=== PATIENT | female | born 1950 | race Caucasian/White ===

== ENCOUNTER 2024-01-09 11:03 | Inpatient (IN) | payer MEDICARE, BC, SELFPAY ==
[2024-01-08] VITALS (10 sets, daily range): BP systolic 116–170; BP diastolic 62–90; BMI 27.7; BMI 35.0
[2024-01-08 14:05] LABS: Glucose - Point of Care 144 mg/dl (70-99)
[2024-01-08 14:36] LABS: % Basophils 0.5 % (0-2); % Eosinophils 0.4 % (0-6); % Immature Granulocytes 0.4 % (0-0.5); % Lymphocytes 26.9 % (20.5-51.1); % Monocytes 8.7 % (1.7-9.3); % Neutrophils 63.1 % (42.2-75.2); Absolute Basophils 0.1 10^3/uL (0-0.2); Absolute Eosinophils 0.1 10^3/uL (0-0.7); Absolute Immature Granulocytes 0.1 10^3/uL (0-0.05); Absolute Neutrophils 7.1 10^3/uL (1.4-6.5); Hematocrit 40.7 % (37.0-47.0); Hemoglobin 14.1 g/dL (12.0-16.0); Mean Corp Hgb Conc. 34.6 g/dL (33.0-37.0); Mean Corpuscular Hgb 31.3 pg (27.0-31.0); Mean Corpuscular Volume 90.4 fL (81.0-99.0); Mean Platelet Volume 9.6 fL (7.4-10.4); Nucleated Red Blood Cells % 0 %; Platelet Count 296 10^3/uL (130-400); Red Cell Dist. Width 13.4 % (11.5-14.5); White Blood Cell Count 11.2 10^3/uL (4.8-10.8)
[2024-01-08 14:57] LABS: Lactic Acid 2.3 mmol/L (0.7-2.0)
[2024-01-08 15:02] LABS: ALT (SGPT) 17 U/L (0-35); AST (SGOT) 24 U/L (14-36); Albumin 4.4 g/dl (3.5-5.0); Alkaline Phosphatase 122 U/L (38-126); Blood Urea Nitrogen 25 mg/dl (7-17); Carbon Dioxide 23 mmol/L (22-30); Chloride 105 mmol/L (98-107); Estimated Creatinine Clearance 51 ml/min; Glucose 139 mg/dl (70-99); Lipase 129 U/L (23-300); Potassium 4.4 mmol/L (3.5-5.1); Sodium 137 mmol/L (135-145); Total Bilirubin 0.6 mg/dl (0.2-1.3); eGFR 59.86
[2024-01-08] MEDS: MORPHINE SULFATE 4 MG IV (15:05)
[2024-01-08] MEDS: ZOFRAN 4 MG IV ×2 (15:05→17:09)
[2024-01-08] MEDS: NSS 500 IV (15:07)
[2024-01-08 15:08] LABS: Troponin I < 0.012 ng/ml
[2024-01-08] MEDS: DILAUDID 1 MG IV (17:09)
[2024-01-08 17:13] LABS: Urine Albumin Negative (Neg - Trace); Urine Bilirubin Negative (Negative); Urine Character Slightly Cloudy (Clear); Urine Color Yellow; Urine Glucose Negative (Negative); Urine Ketone Negative (Negative); Urine Leukocyte Negative (Negative); Urine Nitrite Negative (Negative); Urine Occult Blood Negative (Negative); Urine Urobilinogen Negative (Neg - 1+)
--- NOTE | 2024-01-08 17:42 | ED.GENMED ---
History of Present Illness
General
Chief Complaint: Abdominal Pain
Source: patient
Exam Limitations: none
Time Seen by Provider: 01/08/24 14:55
Nursing documentation reviewed up to this point in time: agreed with
History of Present Illness
History of Present Illness:
73-year-old female with past medical history of asthma, previous partial colon resection due to diverticulitis presenting to the emergency department today with concerns of diffuse abdominal pain worsening since yesterday with associated nausea and
vomiting. Denies any chest pain shortness of breath fevers.
Past History
Past History
ED Past Medical History: Other (kidney stones, urticaria, hyperlipidemia, hypertension)
Social History
Tobacco: Smoker
Alcohol: Occasional
Drug: None
Living: with roommate
Review of Systems
Review of Systems
Allergies reviewed?: Yes
All Other Systems: ROS reviewed and negative except as documented in HPI and ROS
Phy Exam
Physical Exam
Physical Exam:
GENERAL: Alert , in no apparent distress
EYE: pupils equal and reactive
NECK: Supple, no significant adenopathy.
ENT: o/p clr, mmm.
CARDIAC: Regular rate and rhythm .
LUNGS: Clear breath sounds bilaterally, no acute respiratory distress, no wheezes/rales/rhonchi
ABDOMEN: Diffuse abdominal pain to palpation.
NEUROLOGICAL: Alert and oriented, no focal neuro deficits
SKIN: Warm and dry, skin intact.
MUSCULOSKELETAL: No edema, well perfused.
PSYCH: Normal and appropriate interaction.
Course
Orders/Labs/Results
Orders:
Orders
01/08/24 14:04
ECG [Electrocardiogram (*1)] Urgent
Reason for Study: Abdominal Pain
01/08/24 14:05
EKG- Treatment ONCE
01/08/24 14:27
Complete Blood Count/With Diff Urgent
Comprehensive Metabolic Panel Urgent
Lactic Acid Urgent
Lipase Urgent
Troponin I Urgent
01/08/24 14:59
CT Abd/Pel (IV only)-DH only Urgent
Comment:
Reason For Exam: diffuse abd pain
01/08/24 15:00
Morphine Sulfate 4 mg IV NOW STA
Ondansetron Injectable [Zofran] 4 mg IV NOW STA
Chest [CR Chest - 2 Views ] Urgent
Comment:
Reason For Exam: cp sob
01/08/24 15:03
0.9% Sodium Chloride 500 ml [Nss] 500 ml IV BOLUS
01/08/24 16:34
Urinalysis Reflex To Culture Urgent
Date Specimen was Collected: 01/08/24
Time Specimen was Collected: 16:31
01/08/24 17:06
HYDROmorphone [Dilaudid] 1 mg IV NOW STA
Ondansetron Injectable [Zofran] 4 mg IV NOW STA
Abnormal Lab Results
01/08/24 01/08/24
14:04 14:27
WBC 11.2 H 10^3/uL
(4.8-10.8)
MCH 31.3 H pg
(27.0-31.0)
Abs Immat Gran (auto) 0.1 H 10^3/uL
(0-0.05)
Absolute Neuts (auto) 7.1 H 10^3/uL
(1.4-6.5)
Absolute Monos (auto) 1.0 H 10^3/uL
(0.1-0.6)
BUN 25 H mg/dl
(7-17)
Glucose 139 H mg/dl
(70-99)
Lactic Acid 2.3 H mmol/L
(0.7-2.0)
POC Glucose 144 H mg/dl
(70-99)
01/08/24 14:27
01/08/24 14:27
Vital Signs
Initial and Last Documented VS:
Initial Vital Signs
Temp Pulse Resp BP Pulse Ox
97.9 F 68 18 164/90 95
01/08/24 14:01 01/08/24 14:01 01/08/24 14:01 01/08/24 14:01 01/08/24 14:01
Last Documented Vital Signs
Temp Pulse Resp BP Pulse Ox
97.5 F 77 17 170/77 94
01/08/24 17:36 01/08/24 17:30 01/08/24 15:45 01/08/24 17:00 01/08/24 17:37
MDM/Problems Addressed
MDM/Problems Addressed:
73-year-old female presenting to the emergency department today with concerns of diffuse abdominal pain worsening since yesterday nausea and vomiting here. Initial blood pressure elevated but otherwise vital signs are normal. White count 11.2
otherwise labs showing slight lactic acidosis as well as elevated BUN to creatinine ratio. Urinalysis normal. CT scan showing small bowel obstruction plan for admission for further treatment and monitoring.
*Critical Care Note
Total Time (30-74mins, 75-104mins- exclusive of procedures): Not Applicable
ED Attending Note
-
Portions of this chart may have been created with voice recognition software.� Occasional wrong word or��sound alike� substitutions may have occurred due to the inherent limitations of voice recognition software.
Discharge Plan
Departure
Patient Disposition: Admit
Date of Disposition: 01/08/24
Time of Disposition: 17:43
Admit to: Med/Surg
Admit to doctor: Adilene
Presentation/result/management discussed w/ accepting MD/DO: Hospitalist
Patient with high blood pressure during this ER visit?: No
Condition: Good
Covid-19: Not Applicable
Discharge Problem:
SBO (small bowel obstruction)
Prescriptions:
No Action
atorvastatin 20 MG tablet
10 mg PO QPM
aspirin 81 MG tablet,delayed release (DR/EC)
81 mg PO DAILYPRN PRN (Reason: pain )
hydroxyzine HCl 25 MG tablet
25 mg PO DAILYPRN PRN (Reason: hives)
hydrochlorothiazide 25 MG tablet
25 mg PO DAILYPRN PRN (Reason: swelling/edema )
meloxicam 15 mg tablet
15 mg PO DAILY
albuterol sulfate 90 mcg/actuation HFA aerosol inhaler
2 inh INHALATION Q6HPRN PRN (Reason: SOB/wheezing )
metoprolol succinate 12.5 MG tablet extended release 24 hr
12.5 mg PO QPM
Pepcid Complete 10-800-165 mg Tablet,Chewable
2 tab PO DAILYPRN PRN (Reason: GI symptoms )
Referrals:
Jenny Yuan MD [Family Provider] -
Interventions
Interventions:
*Risk Screen - Suicide Last Done: 01/08/24 14:36
*General Assessment Last Done: 01/08/24 14:36
*Neglect/Abuse Screening Last Done: 01/08/24 14:36
ED- Fall Risk Assessment Last Done: 01/08/24 14:36
*ED COVID-19 Vaccine History Last Done: 01/08/24 14:36
WE-Tazvbh-Iowltmdrmz Assessment Last Done: 01/08/24 16:10
Discharge Date and Time
Print Language: SRI LANKAN
--- NOTE | 2024-01-08 18:51 | HPS.HSE ---
Family Physician
-
Family Physician: Jenny Yuan
Chief Complaint
-
abdominal pain
History of Present Illness
73-year-old female past medical history of asthma, diverticulitis status post partial colon resection 3 years ago, kidney stones, hyperlipidemia, hypertension, restless leg syndrome, obesity, GERD, presenting with diffuse abdominal pain since
yesterday with nausea and vomiting. Pain is located in the epigastric region and radiates upward as well as in the center of the abdomen radiating across. Pain also radiates to the chest. She denies shortness of breath. Patient denies fevers or
chills. She had a bowel movement yesterday and this morning.
Patient drinks alcohol occasionally. She does smoke currently.
Medical History
Past Medical History
Past Medical History: Reports Other (asthma, diverticulitis status post partial colon resection 3 years ago, kidney stones, hyperlipidemia, hypertension, restless leg syndrome, obesity, GERD)
Past Surgical History: Reports Other (diverticulitis status post partial colon resection 3 years ago)
Social History
Tobacco: Smoker
Alcohol: Occasional
Drug: None
Family History
Family History: Not pertinent
Allergies / Home Medications
Allergies reflects when Allergies were last updated in [facility].
Home Medications with original date entered in [facility]
Allergy/Medication List:
Allergies
Allergy/AdvReac Type Severity Reaction Status Date / Time
erythromycin base Allergy Nausea / Verified 01/08/24 14:03
Vomiting
seasonal Allergy congestion, Uncoded 01/08/24 14:03
itching
eyes
Home Medications
atorvastatin 20 mg tablet 10 mg PO QPM High cholesterol 01/24/19
aspirin 81 mg tablet,delayed release 81 mg PO DAILYPRN PRN pain 09/13/19
hydrochlorothiazide 25 mg tablet 25 mg PO DAILYPRN PRN swelling/edema 01/08/20
hydroxyzine HCl 25 mg tablet 25 mg PO DAILYPRN PRN hives 01/08/20
albuterol sulfate 90 mcg/actuation aerosol inhaler 2 inh inhalation Q6HPRN PRN SOB/wheezing 01/08/24
famotidine-Ca carb-mag hydrox 10 mg-800 mg-165 mg chewable tablet (Pepcid Complete) 2 tab PO DAILYPRN PRN GI symptoms 01/08/24
meloxicam 15 mg tablet 15 mg PO DAILY pain 01/08/24
metoprolol succinate 25 mg tablet,extended release 24 hr 12.5 mg PO QPM Blood Pressure 01/08/24
Review of Systems
-
History Source: Patient
A 12 point ROS was completed and negative except as noted: Yes
Constitutional: Reports No Symptoms
EENT: Reports No Symptoms
Respiratory: Reports No Symptoms
Cardiac: Reports No Symptoms
Abdomen/GI: Reports See HPI
: Reports No Symptoms
Musculoskeletal: Reports No Symptoms
Skin: Reports No Symptoms
Neurological: Reports No Symptoms
Endocrine: Reports No Symptoms
Hematologic/Lymphatic: Reports No Symptoms
Psych: Reports No Symptoms
Physical Exam
Vital Signs
Vital Signs
Temp Pulse Resp BP Pulse Ox
97.5 F 72 17 137/62 95
01/08/24 17:36 01/08/24 18:00 01/08/24 15:45 01/08/24 18:00 01/08/24 18:00
Physical Exam
General: Well Developed, Well Nourished and No Apparent Distress
HEENT: NormoCephalic, Moist mucous membranes and Atraumatic
Respiratory: Clear
Cardiac: S1/S2 and Regular Rhythm; No Murmur or Rub
GI: Soft, Non Distended, Normal Bowel Sounds and Tender (epigastric ); No Organomegaly
Rectal: Deferred by Provider
Musculoskeletal: No Clubbing, No Cyanosis and No Edema
Skin: No Rash
Neuro: Nonfocal/grossly intact
Laboratory Results
-
07/08/24 14:27
01/08/24 14:27
Laboratory Results
Lactic Acid 2.3 mmol/L (0.7-2.0) H 01/08/24 14:27
Total Bilirubin 0.6 mg/dl (0.2-1.3) 01/08/24 14:
AST 24 U/L (14-36) 01/08/24 14:
ALT 17 U/L (0-35) 01/08/24 14:
Alkaline Phosphatase 122 U/L (38-126) 01/08/24 14:
Troponin I < 0.012 ng/ml 01/08/24 14:
Lipase 129 U/L (23-300) 01/08/24 14:
Data Reviewed
-
Lab Data: Labs Reviewed by me
Old Records: Reviewed
Impression/Plan
-
IMPRESSION:
PLAN:
# Developing mild small bowel obstruction
-N.p.o. including oral medications for now
-IV fluids
-Dilaudid, Zofran
-General surgery consulted
Diverticulitis status post partial colon resection 3 years ago
Asthma
-Continue inhalers
Active smoker
Kidney stones
Hyperlipidemia
-Continue statin when able
Essential hypertension
-Continue metoprolol when able
-Hold hydrochlorothiazide
Restless leg syndrome
Obesity
GERD
Full code
DVT prophylaxis heparin
N.p.o.
--- NOTE | 2024-01-08 19:17 | EDRN ---
patients daughter-Danilo Harman [phone] wants to be called with any updates- she lives local and can be here if needed at any time
--- NOTE | 2024-01-08 19:45 | PTCARENOTE ---
Pt arrived from ED via stretcher, oob to bed x1 assist. c/o dizziness. PT states 'my pain is so much better.' oriented to room. call mckenzie within reach.
[2024-01-08 21:31] LABS: Lactic Acid 1.5 mmol/L (0.7-2.0)
[2024-01-08] MEDS: HEPARIN SC (21:44)
[2024-01-08] MEDS: NSS 1000 IV (21:47)
[2024-01-09 00:23] VITALS: BP 124/63
[2024-01-09] MEDS: NSS 1000 IV ×2 (06:24→16:29)
[2024-01-09 06:58] VITALS: BP 130/51
[2024-01-09 07:23] LABS: % Basophils 0.3 % (0-2); % Eosinophils 0.7 % (0-6); % Immature Granulocytes 0.5 % (0-0.5); % Lymphocytes 18.2 % (20.5-51.1); % Monocytes 10.9 % (1.7-9.3); % Neutrophils 69.4 % (42.2-75.2); Absolute Eosinophils 0.1 10^3/uL (0-0.7); Absolute Immature Granulocytes 0.1 10^3/uL (0-0.05); Absolute Lymphocytes 2.4 10^3/uL (1.2-3.4); Absolute Monocytes 1.4 10^3/uL (0.1-0.6); Absolute Neutrophils 9.2 10^3/uL (1.4-6.5); Hematocrit 39.2 % (37.0-47.0); Hemoglobin 13.3 g/dL (12.0-16.0); Mean Corp Hgb Conc. 33.9 g/dL (33.0-37.0); Mean Corpuscular Hgb 31.6 pg (27.0-31.0); Mean Corpuscular Volume 93.1 fL (81.0-99.0); Nucleated Red Blood Cells % 0 %; Red Blood Cell Count 4.21 10^6/uL (4.20-5.40); Red Cell Dist. Width 13.6 % (11.5-14.5); White Blood Cell Count 13.3 10^3/uL (4.8-10.8)
[2024-01-09 08:09] LABS: ALT (SGPT) 15 U/L (0-35); AST (SGOT) 21 U/L (14-36); Albumin 3.6 g/dl (3.5-5.0); Alkaline Phosphatase 92 U/L (38-126); Blood Urea Nitrogen 24 mg/dl (7-17); Calcium 9.1 mg/dl (8.4-10.2); Carbon Dioxide 26 mmol/L (22-30); Chloride 106 mmol/L (98-107); Estimated Creatinine Clearance 60 ml/min; Glucose 92 mg/dl (70-99); Potassium 5.3 mmol/L (3.5-5.1); Total Bilirubin 0.6 mg/dl (0.2-1.3); eGFR > 60.00
[2024-01-09 08:32] LABS: Sodium 137 mmol/L (135-145)
[2024-01-09] MEDS: HEPARIN 5000 UNITS SC ×2 (10:55→21:22)
--- NOTE | 2024-01-09 12:24 | W.PN.HOSP.TC ---
Today's Communication/Plan
-
Monitor vital signs and see plan
N.p.o.
Fluids
Abdominal x-ray
Surgery to see
Monitor leukocytosis
Assessment / Plan
Assessment / Plan
General: Well Developed, Well Nourished and No Apparent Distress
HEENT: NormoCephalic, Moist mucous membranes and Atraumatic
Respiratory: Clear
Cardiac: S1/S2 and Regular Rhythm; No Murmur or Rub
GI: Soft, Non Distended, Normal Bowel Sounds and Tender (epigastric )
Musculoskeletal: No Edema
Skin: No Rash
Neuro: Nonfocal/grossly intact
small bowel obstruction
-N.p.o. including oral medications for now
-IV fluids
-Dilaudid, Zofran
-General surgery consulted, abdominal x-ray
Monitor leukocytosis
CT noted, also shows moderate fecal material throughout the colon
Mild hyperkalemia
monitor
Diverticulitis status post partial colon resection 3 years ago
Asthma
-Continue inhalers
Active smoker
Kidney stones
Hyperlipidemia
-Continue statin when able
Essential hypertension
-Continue metoprolol when able
-Hold hydrochlorothiazide
Restless leg syndrome
Obesity
GERD
Full code
DVT prophylaxis heparin
Anticipated Discharge: 24 - 48 hours
Subjective/Interval History
-
Date of Service: January 09, 2024
Does have some discomfort
Objective Data
-
Labs:
Laboratory Results
01/09/24
06:54
WBC 13.3 H
Hgb 13.3
Hct 39.2
Plt Count
Sodium 137
Potassium 5.3 H
Chloride 106
Carbon Dioxide 26
BUN 24 H
Creatinine 0.9
Glucose 92
Calcium 9.1
Total Bilirubin 0.6
AST 21
ALT 15
Alkaline Phosphatase 92
Vital Signs:
Vital Signs
Temp Pulse Resp BP Pulse Ox
98.8 F 66 26 130/51 93
01/09/24 06:58 01/09/24 06:58 01/09/24 06:58 01/09/24 06:58 01/09/24 06:58
I&O
01/08/24 01/09/24 01/10/24
06:59 06:59 06:59
Intake Total 1000 / 1000
Balance 1000 / 1000
--- NOTE | 2024-01-09 14:36 | CON.GS ---
Medical History
-
Chief Complaint: Abdominal pain nausea and emesis
History of Present Illness:
Patient is a 73 yo F with a PMH of asthma, GERD, HTN, HLD, nephrolithiasis, and s/p robotic sigmoidectomy for diverticulitis by Dr. Andersen in 2019. Ms. Alicia states that she developed diffuse upper abdominal pain, nausea, vomiting yesterday.
Bleeding radiates up into her chest. No fevers or chills. Currently she states that her symptoms have improved. She denies any flatus. Her last bowel movement was yesterday. She denies any prior similar episodes necessitating hospitalization.
She does report infrequent episodes of abdominal discomfort (few times a year).
Past Medical History
Past Medical History: Asthma, GERD, HTN and Hypercholesterolemia
Past Surgical History: Urological (Cystoscopy with stents) and Other (Robotic sigmoidectomy by Dr. Andersen in 2021)
Social History
Tobacco: Smoker
Alcohol: Occasional
Drug: None
Family History
Family History: Reviewed & Not Pertinent
Allergies / Home Medications
Allergy/AdvReac Type Severity Reaction Status Date / Time
erythromycin base Allergy Nausea / Verified 01/08/24 14:03
Vomiting
seasonal Allergy congestion, Uncoded 01/08/24 14:03
itching
eyes
�Medication �Instructions �Recorded �Confirmed �Type
atorvastatin 20 mg tablet 10 mg PO QPM High cholesterol 01/24/19 01/08/24 History
aspirin 81 mg tablet,delayed 81 mg PO DAILYPRN PRN pain 09/13/19 01/08/24 History
release
hydrochlorothiazide 25 mg tablet 25 mg PO DAILYPRN PRN 01/08/20 01/08/24 History
swelling/edema
hydroxyzine HCl 25 mg tablet 25 mg PO DAILYPRN PRN hives 01/08/20 01/08/24 History
albuterol sulfate 90 mcg/actuation 2 inh inhalation Q6HPRN PRN 01/08/24 01/08/24 History
aerosol inhaler SOB/wheezing
famotidine-Ca carb-mag hydrox 10 2 tab PO DAILYPRN PRN GI symptoms 01/08/24 01/08/24 History
mg-800 mg-165 mg chewable tablet
(Pepcid Complete)
meloxicam 15 mg tablet 15 mg PO DAILY pain 01/08/24 01/08/24 History
metoprolol succinate 25 mg 12.5 mg PO QPM Blood Pressure 01/08/24 01/08/24 History
tablet,extended release 24 hr
Review of Systems
-
A 10 point review of systems was completed, and was negative except as per HPI.
Physical Exam
Vital Signs
Temp Pulse Resp BP Pulse Ox
98.8 F 66 26 130/51 93
01/09/24 06:58 01/09/24 06:58 01/09/24 06:58 01/09/24 06:58 01/09/24 06:58
01/08/24 01/09/24 01/10/24
06:59 06:59 06:59
Actual Weight 89.584 kg
Body Mass Index (BMI) 35.0
Lab Results
01/09/24 06:54
01/09/24 06:54
WBC 13.3 10^3/uL (4.8-10.8) H 01/09/24 06:54
Hgb 13.3 g/dL (12.0-16.0) 01/09/24 06:54
Hct 39.2 % (37.0-47.0) 01/09/24 06:54
Plt Count 10^3/uL (130-400) 01/09/24 06:54
Abs Immat Gran (auto) 0.1 10^3/uL (0-0.05) H 01/09/24 06:54
Neutrophils % 69.4 % (42.2-75.2) 01/09/24 06:54
Physical Exam
General: Well Developed and Well Nourished
HEENT: Normocephalic and Anicteric
Respiratory: Non Labored Respirations
Cardiac: Regular Rhythm
GI: Soft, Tender (Minimal upper abdominal), Distended (Mild), Obese and Other (Nonperitoneal (no rebound or guarding))
Musculoskeletal: No Edema
Skin: Warm and Dry
Neuro: Nonfocal/Grossly Intact
Data Reviewed
-
CT Scan: Image Personally Visualized and interpreted and Report Reviewed by me
Labs: Labs Reviewed by me
Old Records: Reviewed
Assessment / Plan
-
Patient is a 73 yo F p/w p SBO
CT scan imaging was reviewed. No evidence of pneumatosis or free air. No concerns for bowel ischemia. Evidence of clinical improvement with some passage of flatus and a BM yesterday, as well as less pain. No plans for surgical intervention at
this time. Repeat abdominal x-ray ordered to follow-up progression of contrast and evaluate degree of small bowel distention. Likely advancement to clear liquids either today versus tomorrow pending x-rays and clinical course.
-- Abd X-ray
-- NPO, IVF
-- OOB/ambulate
-- Correct electrolytes, minimize narcotics
[2024-01-09 15:13] VITALS: BP 119/58
--- NOTE | 2024-01-09 15:38 | CM ---
Patient seen at bedside with daughter. Patient stated that she lives alone with family close by. Patient PCP is Dr. Rodriguez and she uses the [facility] on [facility]. Patient stated that she anticipates discharge home with no needs. CM will continue to
follow for discharge planning needs.
Plan; home with VN vs home with no needs.
--- NOTE | 2024-01-09 18:20 | PTCARENOTE ---
Patient c/o headache. Patient also asking for medication for hives. Patient states, 'I am getting hives. This is not new for me, I just need my medicine.' No hives noted at present. Physician made aware.
--- NOTE | 2024-01-09 18:50 | PTCARENOTE ---
Patient has visible raised hives on the tops of her thighs and one her right upper arm. Physician notified, order obtained for Benadryl 10mg IV now.
[2024-01-09] MEDS: BENADRYL 10 MG IV (19:15)
[2024-01-09] MEDS: MORPHINE SULFATE 1 MG IV (20:36)
[2024-01-09 23:59] VITALS: BP 134/53
[2024-01-10] MEDS: NSS 1000 IV (02:14)
[2024-01-10 07:30] VITALS: BP 131/73
[2024-01-10 08:00] LABS: % Basophils 0.2 % (0-2); % Eosinophils 0.8 % (0-6); % Immature Granulocytes 0.3 % (0-0.5); % Lymphocytes 20.3 % (20.5-51.1); % Monocytes 8.5 % (1.7-9.3); % Neutrophils 69.9 % (42.2-75.2); Absolute Eosinophils 0.1 10^3/uL (0-0.7); Absolute Lymphocytes 2.1 10^3/uL (1.2-3.4); Absolute Monocytes 0.9 10^3/uL (0.1-0.6); Absolute Neutrophils 7.2 10^3/uL (1.4-6.5); Hematocrit 38.7 % (37.0-47.0); Hemoglobin 13.1 g/dL (12.0-16.0); Mean Corp Hgb Conc. 33.9 g/dL (33.0-37.0); Mean Corpuscular Hgb 30.5 pg (27.0-31.0); Mean Corpuscular Volume 90.2 fL (81.0-99.0); Mean Platelet Volume 9.8 fL (7.4-10.4); Nucleated Red Blood Cells % 0 %; Platelet Count 247 10^3/uL (130-400); Red Blood Cell Count 4.29 10^6/uL (4.20-5.40); Red Cell Dist. Width 13.3 % (11.5-14.5); White Blood Cell Count 10.3 10^3/uL (4.8-10.8)
[2024-01-10] MEDS: HEPARIN 5000 UNITS SC ×2 (09:03→20:28)
[2024-01-10 09:26] LABS: ALT (SGPT) 16 U/L (0-35); AST (SGOT) 24 U/L (14-36); Albumin 3.5 g/dl (3.5-5.0); Alkaline Phosphatase 87 U/L (38-126); Blood Urea Nitrogen 15 mg/dl (7-17); Calcium 8.9 mg/dl (8.4-10.2); Carbon Dioxide 18 mmol/L (22-30); Chloride 108 mmol/L (98-107); Estimated Creatinine Clearance 68 ml/min; Glucose 86 mg/dl (70-99); Potassium 4.1 mmol/L (3.5-5.1); Sodium 136 mmol/L (135-145); Total Bilirubin 0.9 mg/dl (0.2-1.3); Total Protein 5.9 g/dl (6.3-8.2); eGFR > 60.00
[2024-01-10] MEDS: ATARAX 25 MG PO (09:55)
--- NOTE | 2024-01-10 11:23 | W.PN.GS2 ---
Today's Communication / Plan
-
Adv to [facility]
Assessment / Plan
-
73F with resolving pSBO
Improving
Adv to [facility]
DVT ppx
Ambulate
All other care as per primary team
Subjective Data
-
Date of Service: January 10, 2024
AFVSS, nausea and abd pain have resolved, she is passing flatus
Objective Data
-
Intake and Output
01/09/24 01/10/24 01/11/24
06:59 06:59 06:59
Intake Total 1000 / 1000 1200 / 1200
Balance 1000 / 1000 1200 / 1200
Intake:
IV fluids (Total) 1000 / 1000 1200 / 1200
Other:
Number of approximated MODERATE 3 4
amounts of urine
Vital Signs
Temp Pulse Resp BP Pulse Ox
98.1 F 65 18 131/73 97
01/10/24 07:30 01/10/24 07:30 01/10/24 07:30 01/10/24 07:30 01/10/24 10:54
Lab Results
01/10/24 07:41
01/10/24 07:41
Calcium 8.9 mg/dl (8.4-10.2) 01/10/24 07:41
Total Bilirubin 0.9 mg/dl (0.2-1.3) 01/10/24 07:41
AST 24 U/L (14-36) 01/10/24 07:41
ALT 16 U/L (0-35) 01/10/24 07:41
Alkaline Phosphatase 87 U/L (38-126) 01/10/24 07:41
Total Protein 5.9 g/dl (6.3-8.2) L 01/10/24 07:41
Albumin 3.5 g/dl (3.5-5.0) 01/10/24 07:41
Physical Exam
-
Gen: NAD
Abd: soft, nt, nd, obese
--- NOTE | 2024-01-10 13:51 | W.PN.HOSP.TC ---
Today's Communication/Plan
-
monitor vitals
see plan
Now on clears
surgery following
Assessment / Plan
Assessment / Plan
General: Well Developed, Well Nourished and No Apparent Distress
HEENT: NormoCephalic, Moist mucous membranes and Atraumatic
Respiratory: Clear
Cardiac: S1/S2 and Regular Rhythm; No Murmur or Rub
GI: Soft, Non Distended, Normal Bowel Sounds and Tender (epigastric )
Musculoskeletal: No Edema
Skin: No Rash
Neuro: Nonfocal/grossly intact
small bowel obstruction
Slowly improving now, now on clears
DC further fluids
-Dilaudid, Zofran
-General surgery following
Monitor leukocytosis
CT noted, also shows moderate fecal material throughout the colon
Mild hyperkalemia
monitor, improving
Diverticulitis status post partial colon resection 3 years ago
Asthma
-Continue inhalers
Active smoker
Kidney stones
Hyperlipidemia
-Continue statin when able
Essential hypertension
-Continue metoprolol when able
-Hold hydrochlorothiazide
Restless leg syndrome
Obesity
GERD
Full code
DVT prophylaxis heparin
Anticipated Discharge: > 48 hours
Subjective/Interval History
-
Date of Service: January 10, 2024
Still have some discomfort
Objective Data
-
Labs:
Laboratory Results
01/10/24
07:41
WBC 10.3
Hgb 13.1
Hct 38.7
Plt Count 247
Sodium 136
Potassium 4.1
Chloride 108 H
Carbon Dioxide 18 L
BUN 15
Creatinine 0.8
Glucose 86
Calcium 8.9
Total Bilirubin 0.9
AST 24
ALT 16
Alkaline Phosphatase 87
Vital Signs:
Vital Signs
Temp Pulse Resp BP Pulse Ox
98.1 F 65 18 131/73 97
01/10/24 07:30 01/10/24 07:30 01/10/24 07:30 01/10/24 07:30 01/10/24 10:54
I&O
01/09/24 01/10/24 01/11/24
06:59 06:59 06:59
Intake Total 1000 / 1000 1200 / 1200
Balance 1000 / 1000 1200 / 1200
[2024-01-10 15:04] VITALS: BP 125/59
--- NOTE | 2024-01-10 16:53 | PTCARENOTE ---
Pt AAO x3, AVELAR well, ambulatory in room/to BR; albert well. VSS. On room air- pulse ox 97%. Abd large, soft, albert clear liquid diet, no c/o abd discomfort. BS(+); passing flatus; no BM so far this shift. Voiding in BR without difficulty. Resting
in bed at present, no c/o. Will continue to monitor.
[2024-01-10 23:46] VITALS: BP 141/85
[2024-01-11 07:15] VITALS: BP 140/78
[2024-01-11 08:20] LABS: % Basophils 0.3 % (0-2); % Eosinophils 1.1 % (0-6); % Immature Granulocytes 0.3 % (0-0.5); % Lymphocytes 20.1 % (20.5-51.1); % Monocytes 10.4 % (1.7-9.3); % Neutrophils 67.8 % (42.2-75.2); Absolute Eosinophils 0.1 10^3/uL (0-0.7); Absolute Neutrophils 6.8 10^3/uL (1.4-6.5); Hematocrit 41.3 % (37.0-47.0); Hemoglobin 14.1 g/dL (12.0-16.0); Mean Corp Hgb Conc. 34.1 g/dL (33.0-37.0); Mean Corpuscular Hgb 31.5 pg (27.0-31.0); Mean Corpuscular Volume 92.4 fL (81.0-99.0); Nucleated Red Blood Cells % 0 %; Platelet Count 269 10^3/uL (130-400); Red Blood Cell Count 4.47 10^6/uL (4.20-5.40); Red Cell Dist. Width 13.2 % (11.5-14.5)
--- NOTE | 2024-01-11 08:47 | W.PN.GS2 ---
Addendum entered and electronically signed by Guzman Garcia MD 01/11/24 11:52:
Patient seen and examined with residents. Agree with documented progress note.
Patient states that her presenting symptoms have resolved. No nausea, vomiting, no return of abdominal pain with resumption of liquid diet.
Passing flatus regularly. No distention. No bowel movement yet
AFVSS
NAD AAOx3
ABD: Soft, nondistended, nontender on palpation. No rebound rigidity or guarding
Laboratory testing unremarkable with normal white blood cell count
Assessment/plan: 73-year-old female with resolving partial small bowel obstruction
Advance to low residue diet as tolerated
Okay for discharge if tolerating p.o. challenge from surgical standpoint
Counseled regarding continuing low residue diet for initial few weeks posthospitalization with subsequent resumption of regular diet
Discussed utilization of bowel regiment if needed for constipation which she generally does not have symptoms of
No outpatient general surgical follow-up needed
Original Note:
Today's Communication / Plan
-
Pt is improving clinically, can be discharged home after a low-residual solid food trial.
Assessment / Plan
-
73F on the 3rd day of admission with a resolving partial SBO.
The patient is clinically improving and is able to tolerate her clear liquid diet without abdominal pain, nausea or vomiting. Her abdominal exam is normal and she is passing flatus. Thus she may advance her diet to low-residual/low-fiber foods. If
she is able to tolerate this diet, she can be discharged home from a surgical standpoint.
1. Partial SBO: improving
- Advance diet to low-residual
- If the patient is able to tolerate the above, discharge home.
- Patient given directions on following low-residual diet at home.
- If the patient is still passing gas without BM, counseled to take Miralax.
Time Spent
Total Time Spent with Patient (in minutes): 15
Subjective Data
-
Date of Service: January 11, 2024
73F with a PSHx of previous partial colon resection on the 3rd day of her admission with a resolving partial small bowel obstruction. The patient has no acute complaints today. Yesterday she was advanced to a clear liquid diet, and she states that
she is tolerating it well. She notes that she is passing flatus, but has not yet had a BM. She denies fevers, abdominal pain, nausea, and vomiting. She states that she has been OOB to use the bathroom and is urinating without difficulty.
Objective Data
-
Intake and Output
01/10/24 01/11/24 01/12/24
06:59 06:59 06:59
Intake Total 1200 / 1200 2580 / 2580
Balance 1200 / 1200 2580 / 2580
Intake:
Oral fluids 1979 / 1979
IV fluids (Total) 1200 / 1200 600 / 600
Other:
Number of approximated MODERATE 4 10
amounts of urine
Number of approximated LARGE 2
amounts of urine
Vital Signs
Temp Pulse Resp BP Pulse Ox
98.5 F 71 18 141/85 94
01/10/24 23:46 01/10/24 23:46 01/10/24 23:46 01/10/24 23:46 01/10/24 23:46
Lab Results
01/11/24 07:03
Calcium 8.9 mg/dl (8.4-10.2) 01/10/24 07:41
Total Bilirubin 0.9 mg/dl (0.2-1.3) 01/10/24 07:41
AST 24 U/L (14-36) 01/10/24 07:41
ALT 16 U/L (0-35) 01/10/24 07:41
Alkaline Phosphatase 87 U/L (38-126) 01/10/24 07:41
Total Protein 5.9 g/dl (6.3-8.2) L 01/10/24 07:41
Albumin 3.5 g/dl (3.5-5.0) 01/10/24 07:41
Physical Exam
-
General: NAD, comfortable
Respiratory: Normal work of breathing.
Abdomen: Obese, soft, nondistended, nontender to palpation in all four quadrants.
Neuro: Alert, oriented.
Psych: Calm, cooperative.
[2024-01-11 08:49] LABS: ALT (SGPT) 16 U/L (0-35); AST (SGOT) 34 U/L (14-36); Albumin 3.7 g/dl (3.5-5.0); Alkaline Phosphatase 88 U/L (38-126); Blood Urea Nitrogen 14 mg/dl (7-17); Calcium 9.2 mg/dl (8.4-10.2); Carbon Dioxide 26 mmol/L (22-30); Chloride 106 mmol/L (98-107); Estimated Creatinine Clearance 60 ml/min; Glucose 93 mg/dl (70-99); Potassium 4.6 mmol/L (3.5-5.1); Sodium 137 mmol/L (135-145); Total Bilirubin 0.9 mg/dl (0.2-1.3); Total Protein 6.1 g/dl (6.3-8.2); eGFR > 60.00
[2024-01-11] MEDS: HEPARIN 5000 UNITS SC (08:52)
--- NOTE | 2024-01-11 12:00 | W.PN.HOSP.TC ---
Addendum entered and electronically signed by Toñito Nguyen MD 01/11/24 14:41:
Patient tolerated low residue diet. dc home
time of discharge 38 minutes
Original Note:
Today's Communication/Plan
-
monitor vitals
see plan
monitor with low res; if tolerates then dc home
laxatives if get constipated
Assessment / Plan
Assessment / Plan
General: Well Developed, Well Nourished and No Apparent Distress
HEENT: NormoCephalic, Moist mucous membranes and Atraumatic
Respiratory: Clear
Cardiac: S1/S2 and Regular Rhythm; No Murmur or Rub
GI: Soft, Non Distended, Normal Bowel Sounds and mild tenderness
Musculoskeletal: No Edema
Skin: No Rash
Neuro: Nonfocal/grossly intact
small bowel obstruction
Slowly improving now, just advaced to LRD; if tolerated then likely home
DC further fluids
-Dilaudid, Zofran
-General surgery following
Monitor leukocytosis
CT noted, also shows moderate fecal material throughout the colon
if trouble with BM's then miralax per surpery
Mild hyperkalemia
monitor, improving
Diverticulitis status post partial colon resection 3 years ago
Asthma
-Continue inhalers
Active smoker
Kidney stones
Hyperlipidemia
-Continue statin when able
Essential hypertension
-Continue metoprolol when able
-Hold hydrochlorothiazide
Restless leg syndrome
Obesity
GERD
Full code
DVT prophylaxis heparin
Anticipated Discharge: Within 24 hours
Subjective/Interval History
-
Date of Service: January 11, 2024
has some mild discomfort
Objective Data
-
Labs:
Laboratory Results
01/11/24
07:03
WBC 10.0
Hgb 14.1
Hct 41.3
Plt Count 269
Sodium 137
Potassium 4.6
Chloride 106
Carbon Dioxide 26
BUN 14
Creatinine 0.9
Glucose 93
Calcium 9.2
Total Bilirubin 0.9
AST 34
ALT 16
Alkaline Phosphatase 88
Vital Signs:
Vital Signs
Temp Pulse Resp BP Pulse Ox
98.4 F 61 22 140/78 93
01/11/24 07:15 01/11/24 07:15 01/11/24 07:15 01/11/24 07:15 01/11/24 07:15
I&O
01/10/24 01/11/24 01/12/24
06:59 06:59 06:59
Intake Total 1200 / 1200 2580 / 2580
Balance 1200 / 1200 2580 / 2580
[2024-01-11 13:00] VITALS: BP 138/78
--- NOTE | 2024-01-11 14:40 | W.DCSUMMARY ---
Discharge Summary
Discharge Data
Date of Admission: 01/09/24
Date of Discharge: 01/11/24
-
Pending Results: No
Hospital Course
73-year-old female with past medical history of asthma, nephrolithiasis, hyperlipidemia, essential hypertension, obesity, GERD, restless leg syndrome, diverticulitis status post partial colon resection came to the hospital with abdominal pain,
nausea and vomiting secondary to small bowel obstruction. CT scan admission also noted with moderate fecal material throughout the colon. Patient was seen by surgery throughout hospitalization. With conservative measures, patient symptoms
continue to improve and over time she was able to tolerate low residue diet prior to discharge. When she was able to tolerate diet, she was then discharged home with instructions to follow-up with all her physicians outpatient.
Discharge Plan
-
Patient Disposition: Home (Routine Discharge)
Discharge Diagnosis/Procedures: Small bowel obstruction
Hyperkalemia
Condition: Fair
Diet: Low Fiber
Activity: With assistance
Driving Restrictions: As prior to admission
Bathing Restrictions: None
Referrals:
Jenny Yuan MD [Family Provider] - in less than 1 week
Prescriptions:
New
polyethylene glycol 3350 [Miralax] 17 gram powder in packet
17 g PO DAILY Qty: 30 0RF
Continued
atorvastatin 20 MG tablet
10 mg PO QPM
aspirin 81 MG tablet,delayed release (DR/EC)
81 mg PO DAILYPRN PRN (Reason: pain )
hydroxyzine HCl 25 MG tablet
25 mg PO DAILYPRN PRN (Reason: hives)
hydrochlorothiazide 25 MG tablet
25 mg PO DAILYPRN PRN (Reason: swelling/edema )
meloxicam 15 mg tablet
15 mg PO DAILY
albuterol sulfate 90 mcg/actuation HFA aerosol inhaler
2 inh INHALATION Q6HPRN PRN (Reason: SOB/wheezing )
metoprolol succinate 12.5 MG tablet extended release 24 hr
12.5 mg PO QPM
Pepcid Complete 10-800-165 mg Tablet,Chewable
2 tab PO DAILYPRN PRN (Reason: GI symptoms )
Discharge Orders:
Discharge Patient (As Directed); Ordered 01/11/24
Ordered By: Toñito Nguyen
Discharge Date and Time
Discharge Date/Time: 01/11/24 16:05
Print Language: MACEDONIAN
--- NOTE | 2024-01-11 15:01 | CM ---
CM met with Thuy Phillips who anticipates discharge to home today.
Patient stated that she anticipates discharge home with no needs.
PCP: Dr. Rodriguez
Pharm: [facility] [address].
== END 2024-01-11 16:05 | disposition home or self-care (01) | DRG 390 ==
LOC: 4 EAST ACU 11:03
PROVIDERS: Nurse Practitioner Family; Physician Assistant; ADMITTING PHYSICIAN Hospitalist; ATTENDING PHYSICIAN Internal Medicine; EMERGENCY PHYSICIAN Emergency Medicine; FAMILY PHYSICIAN Family Medicine; OTHER PHYSICIAN Surgery
DX: K56.600 Partial intestinal obstruction, unspecified as to cause (principal); J45.909 Unspecified asthma, uncomplicated; I10 Essential (primary) hypertension; G25.81 Restless legs syndrome; E66.9 Obesity, unspecified; Z68.35 Body mass index [BMI] 35.0-35.9, adult; E87.5 Hyperkalemia; E78.5 Hyperlipidemia, unspecified; K21.9 Gastro-esophageal reflux disease without esophagitis; J30.2 Other seasonal allergic rhinitis; F17.200 Nicotine dependence, unspecified, uncomplicated; Z79.899 Other long term (current) drug therapy; Z87.19 Personal history of other diseases of the digestive system; Z90.49 Acquired absence of other specified parts of digestive tract; Z87.442 Personal history of urinary calculi; Z88.1 Allergy status to other antibiotic agents
CPT/HCPCS: 71046; 74018; 74177; 80053; 81003; 82962; 83605; 83690; 84484; 85025; 93005; 96374; 96375; 96376; 99285; 99406; Q9967

== ENCOUNTER → 2024-03-06 15:50 | Outpatient (REF) | payer MEDICARE, BC, SELFPAY | LOC: WDC 15:50 | PROVIDERS: ATTENDING PHYSICIAN Family Medicine | DX: Z12.31 Encounter for screening mammogram for malignant neoplasm of breast (principal) | CPT/HCPCS: 77063; 77067 ==

== ENCOUNTER → 2024-12-02 16:09 | Outpatient (REF) | payer MEDICARE, BC, SELFPAY | LOC: RAD 16:09 | PROVIDERS: ATTENDING PHYSICIAN Family Medicine | DX: M25.552 Pain in left hip (principal); M54.16 Radiculopathy, lumbar region | CPT/HCPCS: 72110; 73502 ==

== ENCOUNTER → 2025-03-26 06:53 | Outpatient (REF) | payer MEDICARE, BC, SELFPAY | LOC: MRI 3T 06:53 | PROVIDERS: ATTENDING PHYSICIAN Physician Assistant; FAMILY PHYSICIAN Family Medicine | DX: M54.16 Radiculopathy, lumbar region (principal) | CPT/HCPCS: 72148 ==